=== PATIENT | female | born 1935 | race Caucasian/White ===

== ENCOUNTER → 2022-01-14 | Outpatient (CLI) | payer OTHER | END | disposition home or self-care (01) | LOC: RAH 10:42 | PROVIDERS: ATTEND Physician Assistant Medical | DX: N63.21 Unspecified lump in the left breast, upper outer quadrant (principal); R59.0 Localized enlarged lymph nodes | CPT/HCPCS: 76641; 77066 ==

== ENCOUNTER → 2022-01-25 | Outpatient (CLI) | payer OTHER ==
[2022-01-19 10:23] LABS: INR 0.93 (0.85-1.15); PROTHROMBIN TIME 9.9 SEC (9.6-11.6)
[2022-01-19 10:24] LABS: PARTIAL THROMBOPLASTIN TIME 26.3 SEC (26.3-35.5)
== END | disposition home or self-care (01) ==
LOC: RAH 01-19 09:10 → EDUNIT# 01-19 10:00 → RAH 07:44
PROVIDERS: ATTEND Student in an Organized Health Care Education/Training Program
DX: Z01.812 Encounter for preprocedural laboratory examination (principal); N63.32 Unspecified lump in axillary tail of the left breast
CPT/HCPCS: 36415; 76942; 85610; 85730

== ENCOUNTER → 2022-12-05 | Outpatient (CLI) | payer OTHER | END | disposition home or self-care (01) | LOC: RAH 08:07 | PROVIDERS: ATTEND Internal Medicine | DX: Z13.6 Encounter for screening for cardiovascular disorders (principal) | CPT/HCPCS: 75571 ==

== ENCOUNTER → 2022-12-22 | Outpatient (CLI) | payer OTHER | END | disposition home or self-care (01) | LOC: SHCH 12:56 | PROVIDERS: ATTEND Internal Medicine | DX: R94.31 Abnormal electrocardiogram [ECG] [EKG] (principal); I10 Essential (primary) hypertension | CPT/HCPCS: 93306 ==

== ENCOUNTER → 2023-06-20 | Outpatient (CLI) | payer OTHER | END | disposition home or self-care (01) | LOC: RAH 10:14 | PROVIDERS: ATTEND Physician Assistant Medical | DX: Z12.31 Encounter for screening mammogram for malignant neoplasm of breast (principal) | CPT/HCPCS: 77067 ==

== ENCOUNTER → 2025-05-13 | Outpatient (CLI) | payer MEDICARE ==
--- NOTE | 2025-05-14 11:30 | HMCIMG ---
Left axilla ultrasound (limited, focus examination). CLINICAL INDICATION: Left axillary lump/left breast lump COMPARISON: None. FINDINGS: The left breast were interrogated with the high frequency ultrasound probe. No parenchymal abnormalities were identified. The left axilla has an abnormal appearance of a mass measuring 2.6 x 1.9 cm. This appears to be an abnormal-looking lesion would recommend ultrasound-guided biopsy. IMPRESSION: Left axillary region there is an abnormal lesion which does not look like lymph node measuring 2.6 x 1.9 cm. I would recommend ultrasound-guided biopsy. I would recommend bilateral breast diagnostic mammogram. CATEGORY 0: INCOMPLETE. NEED ADDITIONAL IMAGING EVALUATION Recommend monthly self breast exam as well as annual clinical examination. A negative x-ray should not delay biopsy if a dominant or clinically suspicious mass is present, since 8-10% of cancers are not identified by mammography. Dense breasts particularly, may obscure an underlying neoplasm. Some of these may be detected clinically and therefore, clinical examination is an essential part of breast evaluation.
== END | disposition home or self-care (01) ==
LOC: RAH 14:07
PROVIDERS: ATTEND Nurse Practitioner Family
DX: N64.4 Mastodynia (principal); N63.0 Unspecified lump in unspecified breast
CPT/HCPCS: 76641